=== PATIENT | female | born 1985 | race Caucasian/White ===

== ENCOUNTER 2017-06-01 15:47 | Inpatient (IN) | payer OTHER ==
[~2017-06-01] VITALS: Ht 170.2 cm; Wt 68.9 kg
[~2017-06-01 15:47] MED LIST: ADVAIR 250/501 DISK IH; ALBUTEROL IH; ALLERGY25 M2; AMBIEN10 M1 PO; AMBIEN10 MG PO; AVENTYL,PAMELOR10 M1 PO; AVENTYL,PAMELOR25 MG PO; Advair HFA 115/21 IH; BACLOFEN PUMP; BACLOFEN10 MG PO; BACLOFEN20 MG PO; BENADRYL25 MG PO; BENADRYL50 MG PO; CIPRO750 MG PO; CITALOPRAM HBR10 MG PO; COMBIVENT200 INHALA IH; Cleocin PO; Combivent IH; DELTASONE50 MG PO; DILANTIN; DILAUDID2 MG PO; DILAUDID4 MG PO; DOXYCYCLINE HY100 MG PO; FLEXERIL; FLEXERIL10 MG PO; FLEXERIL5 MG PO; LIORESAL I2000 MCG/1 IT; NORTRIPTYLINE; NORTRIPTYLINE H10 MG PO; NORTRIPTYLINE H50 MG PO; OXYCODONE15 MG PO; OXYCONTIN10 MG PO; OXYCONTIN20 MG PO; OxyCODONE PO; PAMELOR50 MG PO; PREDNISONE10 MG PO; PROVENTIL,2.5 MG/0.5 IH; TIZANIDINE HCL4 MG PO; TOPAMAX100 MG PO; TORADOL10 MG PO; ULTRAM50 MG PO; XANAX XR3 MG PO; XANAX0.5 MG PO; XANAX1 MG PO; XANAX2 MG PO; Xanax PO; ZALEPLON10 MG PO; ZEASORB-AF70 G1 TP; ZITHROMAX500 MG PO; Zithromax PO; predniSONE PO
[2017-06-01 17:00] LABS: BASE EXCESS -5.7 mEq/L (-3 to +3); BICARBONATE 18.5 mEq/L (22-26); CARBOXY HGB 4.3 % (0-5); METHEMOGLOBIN 1.1 % (0-1.5); PO2 154 mm Hg (80-100); pH 7.37 (7.35-7.45)
[2017-06-01 17:02] LABS: COMMENTS - BLOOD GASES C+A-N/A; DEVICE 980 VENTILATOR; FI02 50 %; MECHANICAL RATE 16 resp/min; MODE AC; PCO2 32 mm Hg (35-45); PEEP 5 CM/H20; SITE LR; TIDAL VOLUME 450 ML; TOTAL RESP RATE 16 resp/min
[2017-06-01] MEDS ORDERED: ADVAIR 250/501 DISK IH (17:32)
[2017-06-01] MEDS ORDERED: OXYMORPHONE HCL30 MG PO (17:33)
[2017-06-01 17:43] LABS: ADD MIUA? YES; BILIRUBIN NEGATIVE; BLOOD SMALL; COLOR YELLOW ((YELLOW)); GLUCOSE (STRIP) NEGATIVE; KETONES 20; LEUKOCYTES NEGATIVE; NITRITE NEGATIVE; PROTEIN (STRIP) NEGATIVE; SPECIFIC GRAVITY 1.015 (1.000-1.030); UROBILINOGEN 0.2 MG/DL (0.2-1.0)
[2017-06-01 17:49] LABS: BACTERIA NONE SEEN /HPF; EPITHELIAL CELLS RARE /HPF; GRANULAR CASTS 0-5 /LPF; MUCUS TRACE /LPF; RED BLOOD CELLS 0-5 /HPF (0-5); UCUL ADDED? NO; WHITE BLOOD CELLS 0-5 /HPF (0-5)
[2017-06-01 19:02] LABS: EOSINOPHIL (%) 0.1 % (0-5); IMMATURE GRANULOCYTE (%) 0.5 % (0.0-0.7); IMMATURE GRANULOCYTE COUNT 0.1 K/uL; INSTRUMENT ABS NEUTROPHIL CT 8.1 K/uL; LYMPHOCYTE COUNT 1.6 K/uL (1.0-2.8); MCH 28.5 PG (29.0-34.0); MCHC 33.4 G/DL (30.0-36.0); MCV 85.4 FL (83-99); MONOCYTE (%) 4.7 % (3-12); MONOCYTE COUNT 0.5 K/uL (0-0.8); NEUTROPHIL (%) 78.3 % (45-76); NEUTROPHIL COUNT 8.1 K/uL (1.8-6.4); RBC DIS.WIDTH-CV 13.1 % (11.8-14.6); RBC DIS.WIDTH-SD 40.9 % (39-53); WHITE BLOOD COUNT 10.3 K/uL (4.1-10.2)
[2017-06-01 19:08] LABS: INTER. NORMALIZED RATIO 1.1; PROTHROMBIN TIME 11.6 SEC (10.2-12.9)
[2017-06-01 19:10] LABS: CHLORIDE 111 mEq/L (99-109); POTASSIUM 3.7 mEq/L (3.7-5.4); SODIUM 136 mEq/L (136-147)
[2017-06-01 19:11] LABS: PTT 24.3 SEC (25-37)
[2017-06-01 19:12] LABS: GLUCOSE 92 mg/dL (70-99)
[2017-06-01 19:14] LABS: ANION GAP 9 MEQ/L (2-14); TOTAL BILIRUBIN 0.6 mg/dL (0.0-1.0)
[2017-06-01 19:16] LABS: ALKALINE PHOSPHATASE 50 IU/L (3-129); GFR ESTIMATE (CALCULATED) > 59 mL/min/
[2017-06-01 19:17] LABS: UREA NITROGEN (BUN) 9 mg/dL (9-23)
[2017-06-01 19:54] LABS: PLAT.SUFFICIENCY ADEQUATE; PLATELET CLUMPS PRESENT - PLATELET COUNT APPEARS ADQ.; PLATELET COUNT UNABLE TO REPORT K/uL (156-360)
[2017-06-01 22:28] VITALS: BP 132/93
[2017-06-01 22:31] VITALS: BP 132/93
[2017-06-01 23:00] VITALS: BP 113/78
[2017-06-02] VITALS (9 sets, daily range): BP systolic 93–116; BP diastolic 62–86
[2017-06-02 00:03] LABS: METH RESISTANT S AUREUS PCR NEGATIVE (NEGATIVE)
[2017-06-02 00:08] LABS: PROBE CHECK PASS; SPECIMEN PROCESSING CONTROL PASS
[2017-06-02 06:05] LABS: INTER. NORMALIZED RATIO 1.2; PROTHROMBIN TIME 13.2 SEC (10.2-12.9)
[2017-06-02 06:26] LABS: ALKALINE PHOSPHATASE 48 IU/L (3-129); ANION GAP 9 MEQ/L (2-14); CHLORIDE 113 MEQ/L (99-109); GFR ESTIMATE (CALCULATED) > 59 mL/min/; GLUCOSE 93 mg/dL (70-99); SAMPLE HEMOLYSIS CHECK 0; SAMPLE ICTERIC CHECK 0; SAMPLE LIPEMIA CHECK 0; SODIUM 138 MEQ/L (136-147); TOTAL BILIRUBIN 0.7 MG/DL (0.0-1.0); UREA NITROGEN (BUN) 6 mg/dL (9-23)
[2017-06-03] VITALS (12 sets, daily range): BP systolic 117–149; BP diastolic 77–110
[2017-06-03 14:38] LABS: BASOPHIL COUNT 0.1 K/uL (0-0.1); EOSINOPHIL (%) 0 % (0-5); HEMATOCRIT 40.8 % (36.0-46.0); IMMATURE GRANULOCYTE (%) 0.5 % (0.0-0.7); INSTRUMENT ABS NEUTROPHIL CT 5.7 K/uL; LYMPHOCYTE COUNT 2.2 K/uL (1.0-2.8); MCH 29.4 PG (29.0-34.0); MCHC 34.3 G/DL (30.0-36.0); MCV 85.5 FL (83-99); MONOCYTE (%) 5.6 % (3-12); MONOCYTE COUNT 0.5 K/uL (0-0.8); NEUTROPHIL (%) 67.3 % (45-76); NEUTROPHIL COUNT 5.7 K/uL (1.8-6.4); PLATELET COUNT 259 K/uL (156-360); RBC DIS.WIDTH-CV 13.3 % (11.8-14.6); RBC DIS.WIDTH-SD 42.1 % (39-53); RED BLOOD COUNT 4.77 M/uL (3.80-5.20); WHITE BLOOD COUNT 8.5 K/uL (4.1-10.2)
[2017-06-03 14:55] LABS: ANION GAP 7 MEQ/L (2-14); CHLORIDE 110 MEQ/L (99-109); GFR ESTIMATE (CALCULATED) > 59 mL/min/; GLUCOSE 80 mg/dL (70-99); POTASSIUM 3.4 MEQ/L (3.7-5.4); SAMPLE HEMOLYSIS CHECK 0; SAMPLE ICTERIC CHECK 0; SAMPLE LIPEMIA CHECK 0; SODIUM 141 MEQ/L (136-147); UREA NITROGEN (BUN) 7 mg/dL (9-23)
[2017-06-04] VITALS: BP 97/60
[2017-06-04 04:00] VITALS: BP 112/74
[2017-06-04 05:22] LABS: BASOPHIL COUNT 0.1 K/uL (0-0.1); EOSINOPHIL (%) 0 % (0-5); HEMATOCRIT 37.7 % (36.0-46.0); IMMATURE GRANULOCYTE (%) 0.3 % (0.0-0.7); INSTRUMENT ABS NEUTROPHIL CT 3.3 K/uL; LYMPHOCYTE COUNT 2.5 K/uL (1.0-2.8); MCH 29.2 PG (29.0-34.0); MCV 85.9 FL (83-99); MEAN PLAT.VOLUME 10.1 uM^3 (9.5-12.4); MONOCYTE (%) 7.1 % (3-12); MONOCYTE COUNT 0.5 K/uL (0-0.8); NEUTROPHIL (%) 52.3 % (45-76); NEUTROPHIL COUNT 3.3 K/uL (1.8-6.4); PLATELET COUNT 245 K/uL (156-360); RBC DIS.WIDTH-CV 13.4 % (11.8-14.6); RBC DIS.WIDTH-SD 42.1 % (39-53); RED BLOOD COUNT 4.39 M/uL (3.80-5.20); WHITE BLOOD COUNT 6.3 K/uL (4.1-10.2)
[2017-06-04 05:39] LABS: ANION GAP 11 MEQ/L (2-14); CHLORIDE 111 MEQ/L (99-109); GFR ESTIMATE (CALCULATED) > 59 mL/min/; GLUCOSE 88 mg/dL (70-99); POTASSIUM 3.5 MEQ/L (3.7-5.4); SAMPLE HEMOLYSIS CHECK 0; SAMPLE ICTERIC CHECK 0; SAMPLE LIPEMIA CHECK 0; SODIUM 142 MEQ/L (136-147); UREA NITROGEN (BUN) 7 mg/dL (9-23)
[2017-06-04] MEDS ORDERED: LEVETIRACETAM500 MG PO (07:50)
[2017-06-04 08:00] VITALS: BP 131/87
== END 2017-06-04 09:27 | disposition home or self-care (01) | DRG 208 ==
LOC: EME 15:47 → EDOF 19:40 → 4WEST 19:40 → ENRESERV 19:43 → 4WEST 22:21 → ENRESERV 06-03 16:51 → 4WEST 06-04 09:27
PROVIDERS: Emergency Medicine; Internal Medicine Nephrology; Specialist
PROC: 5A1935Z Respiratory Ventilation, Less than 24 Consecutive Hours (ICD-10-PCS; principal; 2017-06-01)
PROC: 0BH17EZ Insertion of Endotracheal Airway into Trachea, Via Natural or Artificial Opening (ICD-10-PCS; 2017-06-01)
DX: J96.00 Acute respiratory failure, unspecified whether with hypoxia or hypercapnia (principal); J69.0 Pneumonitis due to inhalation of food and vomit; I69.351 Hemiplegia and hemiparesis following cerebral infarction affecting right dominant side; J98.11 Atelectasis; D64.9 Anemia, unspecified; E03.9 Hypothyroidism, unspecified; F17.210 Nicotine dependence, cigarettes, uncomplicated; F39 Unspecified mood [affective] disorder; F12.90 Cannabis use, unspecified, uncomplicated; G35 Multiple sclerosis; G93.89 Other specified disorders of brain; G62.9 Polyneuropathy, unspecified; G40.909 Epilepsy, unspecified, not intractable, without status epilepticus; R32 Unspecified urinary incontinence; K58.9 Irritable bowel syndrome, unspecified; K21.9 Gastro-esophageal reflux disease without esophagitis; R00.0 Tachycardia, unspecified; G43.909 Migraine, unspecified, not intractable, without status migrainosus; Z91.040 Latex allergy status; Z87.442 Personal history of urinary calculi; Z99.3 Dependence on wheelchair; Z74.01 Bed confinement status
CPT/HCPCS: 36600; 70450; 71010; 71275; 80048; 80053; 81003; 82803; 83605; 83735; 84100; 85025; 85610; 85730; 87040; 87070; 87205; 87641; 93005; 94002; 94003; 94799; 95819; 99281; 99285; J1170; J1630; J1644; J1953; J2250; J2405; J2543; J2704; J3010; J3260; J3370; J7050; J7644; S0028

== ENCOUNTER 2017-07-24 14:56 | Emergency (ER) | payer OTHER ==
[~2017-07-24] VITALS: Ht 162.6 cm; Wt 67.2 kg
[~2017-07-24 14:56] MED LIST changes: +LEVETIRACETAM500 MG PO; +OXYMORPHONE HCL30 MG PO
[2017-07-24 17:10] LABS: BASOPHIL COUNT 0.1 K/uL (0-0.1); EOSINOPHIL (%) 0 % (0-5); IMMATURE GRANULOCYTE (%) 0.3 % (0.0-0.7); INSTRUMENT ABS NEUTROPHIL CT 5.4 K/uL; MCH 28.3 PG (29.0-34.0); MCHC 33.4 G/DL (30.0-36.0); MCV 84.6 FL (83-99); MEAN PLAT.VOLUME 10.1 uM^3 (9.5-12.4); MONOCYTE (%) 5.2 % (3-12); MONOCYTE COUNT 0.4 K/uL (0-0.8); NEUTROPHIL COUNT 5.4 K/uL (1.8-6.4); PLATELET COUNT 224 K/uL (156-360); RBC DIS.WIDTH-CV 13.8 % (11.8-14.6); RBC DIS.WIDTH-SD 43.1 % (39-53); RED BLOOD COUNT 4.49 M/uL (3.80-5.20); WHITE BLOOD COUNT 7.9 K/uL (4.1-10.2)
[2017-07-24 17:17] LABS: CHLORIDE 110 mEq/L (99-109); POTASSIUM 3.7 mEq/L (3.7-5.4); SODIUM 137 mEq/L (136-147)
[2017-07-24 17:20] LABS: GLUCOSE 88 mg/dL (70-99)
[2017-07-24 17:21] LABS: ANION GAP 7 MEQ/L (2-14)
[2017-07-24 17:22] LABS: TOTAL BILIRUBIN 0.3 mg/dL (0.0-1.0)
[2017-07-24 17:23] LABS: ALKALINE PHOSPHATASE 52 IU/L (3-129)
[2017-07-24 17:24] LABS: GFR ESTIMATE (CALCULATED) > 59 mL/min/
[2017-07-24 17:25] LABS: UREA NITROGEN (BUN) 7 mg/dL (9-23)
[2017-07-24 17:27] LABS: LIPASE 7 U/L (1.0-51.0)
[2017-07-24 18:46] LABS: INTERNAL CONTROL VALID? YES
[2017-07-24 18:56] LABS: ADD MIUA? YES; BILIRUBIN NEGATIVE; BLOOD SMALL; COLOR YELLOW ((YELLOW)); GLUCOSE (STRIP) NEGATIVE; KETONES NEGATIVE; LEUKOCYTES NEGATIVE; NITRITE NEGATIVE; PROTEIN (STRIP) 30; SPECIFIC GRAVITY 1.025 (1.000-1.030)
[2017-07-24 19:02] LABS: BACTERIA NONE SEEN /HPF; EPITHELIAL CELLS RARE /HPF; MUCUS TRACE /LPF; RED BLOOD CELLS 15-20 /HPF (0-5); UCUL ADDED? NO; WHITE BLOOD CELLS NONE SEEN /HPF (0-5)
[2017-07-24 19:38] VITALS: BP 108/69
== END 2017-07-24 19:39 | disposition home or self-care (01) ==
LOC: EME 14:56
PROVIDERS: Emergency Medicine
DX: R45.1 Restlessness and agitation (principal); F84.0 Autistic disorder; G35 Multiple sclerosis; Z86.73 Personal history of transient ischemic attack (TIA), and cerebral infarction without residual deficits; J45.909 Unspecified asthma, uncomplicated; Z86.718 Personal history of other venous thrombosis and embolism; F17.200 Nicotine dependence, unspecified, uncomplicated
CPT/HCPCS: 80053; 81003; 83690; 83735; 84703; 85025; 99281; 99284; J1200; J1630; J2060

== ENCOUNTER 2017-07-27 20:23 | Inpatient (IN) | payer OTHER ==
[~2017-07-27] VITALS: Ht 162.6 cm; Wt 72.1 kg
[2017-07-27 21:17] LABS: ADD MIUA? YES; BILIRUBIN NEGATIVE; BLOOD SMALL; COLOR STRAW ((YELLOW)); GLUCOSE (STRIP) NEGATIVE; KETONES NEGATIVE; LEUKOCYTES NEGATIVE; NITRITE NEGATIVE; PROTEIN (STRIP) NEGATIVE; SPECIFIC GRAVITY 1.003 (1.000-1.030); UROBILINOGEN 0.2 MG/DL (0.2-1.0)
[2017-07-27 21:17] LABS: EOSINOPHIL (%) 0 % (0-5); HEMATOCRIT 45.1 % (36.0-46.0); IMMATURE GRANULOCYTE (%) 0.3 % (0.0-0.7); INSTRUMENT ABS NEUTROPHIL CT 5.9 K/uL; LYMPHOCYTE COUNT 1.2 K/uL (1.0-2.8); MCH 27.9 PG (29.0-34.0); MCHC 33.3 G/DL (30.0-36.0); MCV 83.8 FL (83-99); MEAN PLAT.VOLUME 10.2 uM^3 (9.5-12.4); MONOCYTE (%) 2.3 % (3-12); MONOCYTE COUNT 0.2 K/uL (0-0.8); NEUTROPHIL (%) 80.4 % (45-76); NEUTROPHIL COUNT 5.9 K/uL (1.8-6.4); PLATELET COUNT 277 K/uL (156-360); RBC DIS.WIDTH-CV 14.3 % (11.8-14.6); RBC DIS.WIDTH-SD 43.4 % (39-53); RED BLOOD COUNT 5.38 M/uL (3.80-5.20); WHITE BLOOD COUNT 7.4 K/uL (4.1-10.2)
[2017-07-27 21:22] LABS: BACTERIA NONE SEEN /HPF; EPITHELIAL CELLS RARE /HPF; MUCUS TRACE /LPF; RED BLOOD CELLS 0-5 /HPF (0-5); UCUL ADDED? NO; WHITE BLOOD CELLS 0-5 /HPF (0-5)
[2017-07-27 21:23] LABS: CHLORIDE 111 mEq/L (99-109); SODIUM 139 mEq/L (136-147)
[2017-07-27 21:25] LABS: GLUCOSE 119 mg/dL (70-99)
[2017-07-27 21:27] LABS: ANION GAP 11 MEQ/L (2-14)
[2017-07-27 21:29] LABS: ALKALINE PHOSPHATASE 58 IU/L (3-129); GFR ESTIMATE (CALCULATED) > 59 mL/min/
[2017-07-27] MEDS ORDERED: XANAX1 MG PO (21:29)
[2017-07-27] MEDS ORDERED: PROAIR HFA8.5 GM IH (21:29)
[2017-07-27 21:30] LABS: TOTAL BILIRUBIN 0.4 mg/dL (0.0-1.0); UREA NITROGEN (BUN) 7 mg/dL (9-23)
[2017-07-27] MEDS ORDERED: DILAUDID4 MG PO (21:30)
[2017-07-27] MEDS ORDERED: AVENTYL,PAMELOR50 MG PO (21:30)
[2017-07-27] MEDS ORDERED: ADVAIR 250/501 DISK IH (21:31)
[2017-07-27] MEDS ORDERED: OXYMORPHONE HCL30 MG PO (21:31)
[2017-07-27] MEDS ORDERED: KEPPRA500 MG PO (21:33)
[2017-07-27 21:36] LABS: BASE EXCESS -3.5 mEq/L (-3 to +3); BICARBONATE 20.4 mEq/L (22-26); CARBOXY HGB 3.7 % (0-5); COMMENTS - BLOOD GASES C+; METHEMOGLOBIN 1.2 % (0-1.5); PCO2 33 mm Hg (35-45); PO2 291 mm Hg (80-100); SITE RR
[2017-07-27 21:37] LABS: DEVICE PB840; FI02 100 %; MECHANICAL RATE 18 resp/min; MODE AC; PEEP 5 CM/H20; TIDAL VOLUME 400 ML; TOTAL RESP RATE 20 resp/min
[2017-07-27 21:38] LABS: TROP-I INTERPRETATION NEGATIVE; TROPONIN-I < 0.01 ng/mL (0.0-0.30)
[2017-07-27 23:15] VITALS: BP 128/73
[2017-07-28] VITALS (12 sets, daily range): BP systolic 97–127; BP diastolic 55–88
[2017-07-28 02:06] LABS: METH RESISTANT S AUREUS PCR NEGATIVE (NEGATIVE)
[2017-07-28 02:11] LABS: PROBE CHECK PASS; SPECIMEN PROCESSING CONTROL PASS
[2017-07-29] VITALS (23 sets, daily range): BP systolic 108–144; BP diastolic 64–101
[2017-07-29 05:33] LABS: BASE EXCESS -5.7 mEq/L (-3 to +3); BICARBONATE 16.9 mEq/L (22-26); CARBOXY HGB 1.9 % (0-5); COMMENTS - BLOOD GASES C+A+; DEVICE VENTILATOR; FI02 30 %; MECHANICAL RATE 18 resp/min; METHEMOGLOBIN 1.7 % (0-1.5); MODE AC; PCO2 26 mm Hg (35-45); PEEP 5 CM/H20; PO2 60 mm Hg (80-100); SITE RR; TIDAL VOLUME 400 ML; TOTAL RESP RATE 20 resp/min; pH 7.42 (7.35-7.45)
[2017-07-29 05:44] LABS: EOSINOPHIL (%) 0 % (0-5); IMMATURE GRANULOCYTE (%) 0.5 % (0.0-0.7); LYMPHOCYTE COUNT 0.5 K/uL (1.0-2.8); MCH 27.8 PG (29.0-34.0); MCHC 33.4 G/DL (30.0-36.0); MCV 83.3 FL (83-99); MEAN PLAT.VOLUME 10.1 uM^3 (9.5-12.4); MONOCYTE (%) 0.5 % (3-12); NEUTROPHIL (%) 90.8 % (45-76); PLATELET COUNT 237 K/uL (156-360); RBC DIS.WIDTH-CV 14.1 % (11.8-14.6); RBC DIS.WIDTH-SD 42.9 % (39-53); RED BLOOD COUNT 5.28 M/uL (3.80-5.20); WHITE BLOOD COUNT 6.6 K/uL (4.1-10.2)
[2017-07-29 06:33] LABS: ANION GAP 12 MEQ/L (2-14); CHLORIDE 111 MEQ/L (99-109); GFR ESTIMATE (CALCULATED) > 59 mL/min/; GLUCOSE 115 mg/dL (70-99); POTASSIUM 3.5 MEQ/L (3.7-5.4); SAMPLE HEMOLYSIS CHECK 0; SAMPLE ICTERIC CHECK 0; SAMPLE LIPEMIA CHECK 0; SODIUM 139 MEQ/L (136-147); UREA NITROGEN (BUN) 6 mg/dL (9-23)
[2017-07-30] VITALS (12 sets, daily range): BP systolic 108–150; BP diastolic 65–97
[2017-07-30 05:43] LABS: EOSINOPHIL (%) 0 % (0-5); HEMATOCRIT 41.5 % (36.0-46.0); IMMATURE GRANULOCYTE (%) 0.8 % (0.0-0.7); IMMATURE GRANULOCYTE COUNT 0.1 K/uL; INSTRUMENT ABS NEUTROPHIL CT 13.7 K/uL; LYMPHOCYTE COUNT 0.7 K/uL (1.0-2.8); MCH 27.7 PG (29.0-34.0); MCHC 32.5 G/DL (30.0-36.0); MEAN PLAT.VOLUME 10.7 uM^3 (9.5-12.4); MONOCYTE (%) 1.2 % (3-12); MONOCYTE COUNT 0.2 K/uL (0-0.8); NEUTROPHIL (%) 93.1 % (45-76); NEUTROPHIL COUNT 13.7 K/uL (1.8-6.4); PLATELET COUNT 247 K/uL (156-360); RBC DIS.WIDTH-CV 14.4 % (11.8-14.6); RBC DIS.WIDTH-SD 44.9 % (39-53); RED BLOOD COUNT 4.88 M/uL (3.80-5.20); WHITE BLOOD COUNT 14.7 K/uL (4.1-10.2)
[2017-07-30 06:08] LABS: ANION GAP 12 MEQ/L (2-14); CHLORIDE 109 MEQ/L (99-109); GFR ESTIMATE (CALCULATED) > 59 mL/min/; GLUCOSE 133 mg/dL (70-99); POTASSIUM 4.1 MEQ/L (3.7-5.4); SAMPLE HEMOLYSIS CHECK 0; SAMPLE ICTERIC CHECK 0; SAMPLE LIPEMIA CHECK 0; SODIUM 140 MEQ/L (136-147); UREA NITROGEN (BUN) 8 mg/dL (9-23)
[2017-07-30 10:50] LABS: ADD MIUA? YES; BILIRUBIN NEGATIVE; BLOOD SMALL; COLOR YELLOW ((YELLOW)); GLUCOSE (STRIP) NEGATIVE; KETONES NEGATIVE; LEUKOCYTES SMALL; NITRITE NEGATIVE; PROTEIN (STRIP) NEGATIVE; SPECIFIC GRAVITY 1.013 (1.000-1.030); UROBILINOGEN 0.2 MG/DL (0.2-1.0)
[2017-07-30 11:10] LABS: BACTERIA NONE SEEN /HPF; EPITHELIAL CELLS RARE /HPF; MUCUS TRACE /LPF; RED BLOOD CELLS 0-5 /HPF (0-5); UCUL ADDED? NO; WHITE BLOOD CELLS 0-5 /HPF (0-5)
[2017-07-30] MEDS ORDERED: PREDNISONE5 MG PO (13:42)
== END 2017-07-30 15:08 | disposition home or self-care (01) | DRG 208 ==
LOC: EME → EDBD 20:23 → EME 20:23 → EDOF 21:51 → 4WEST 21:51 → ENRESERV 21:52 → 4WEST 23:03
PROVIDERS: Emergency Medicine; Internal Medicine Critical Care Medicine; Nurse Practitioner Adult Health; Specialist
PROC: 0BH17EZ Insertion of Endotracheal Airway into Trachea, Via Natural or Artificial Opening (ICD-10-PCS; principal; 2017-07-27)
PROC: 5A09357 Assistance with Respiratory Ventilation, Less than 24 Consecutive Hours, Continuous Positive Airway Pressure (ICD-10-PCS; principal; 2017-07-27)
PROC: 5A1945Z Respiratory Ventilation, 24-96 Consecutive Hours (ICD-10-PCS; principal; 2017-07-27)
DX: J96.01 Acute respiratory failure with hypoxia (principal); I69.351 Hemiplegia and hemiparesis following cerebral infarction affecting right dominant side; G40.909 Epilepsy, unspecified, not intractable, without status epilepticus; G35 Multiple sclerosis; J45.909 Unspecified asthma, uncomplicated; J98.11 Atelectasis; K21.9 Gastro-esophageal reflux disease without esophagitis; K58.9 Irritable bowel syndrome, unspecified; E03.9 Hypothyroidism, unspecified; F17.200 Nicotine dependence, unspecified, uncomplicated; F41.9 Anxiety disorder, unspecified; F32.9 Major depressive disorder, single episode, unspecified; G89.29 Other chronic pain; D64.9 Anemia, unspecified; R32 Unspecified urinary incontinence; Z87.442 Personal history of urinary calculi
CPT/HCPCS: 36600; 71010; 71275; 80048; 80053; 81003; 82803; 83605; 83735; 84100; 84484; 85025; 87040; 87070; 87205; 87641; 93005; 94002; 94003; 94640 76; 94799; 99281; 99285; J1650; J2060; J2250; J2704; J2930; J3010; J7030; J7050

== ENCOUNTER 2017-10-28 14:36 | Inpatient (IN) | payer OTHER ==
[2017-10-28] VITALS (7 sets, daily range): BP systolic 101–130; BP diastolic 61–82
[~2017-10-28] VITALS: Ht 167.6 cm; Wt 67.9 kg
[~2017-10-28 14:36] MED LIST changes: +AVENTYL,PAMELOR50 MG PO; +KEPPRA500 MG PO; +PREDNISONE5 MG PO; +PROAIR HFA8.5 GM IH
[2017-10-28 15:01] LABS: BASOPHIL (%) 0.5 % (0-1); EOSINOPHIL (%) 0.1 % (0-5); HEMATOCRIT 43.4 % (36.0-46.0); HEMOGLOBIN 14.8 G/DL (11.9-15.5); IMMATURE GRANULOCYTE (%) 0.3 % (0.0-0.7); LYMPHOCYTE (%) 39.8 % (15-42); LYMPHOCYTE COUNT 3.5 K/uL (1.0-2.8); MCH 29.1 PG (29.0-34.0); MCHC 34.1 G/DL (30.0-36.0); MCV 85.3 FL (83-99); MONOCYTE (%) 4.8 % (3-12); MONOCYTE COUNT 0.4 K/uL (0-0.8); NEUTROPHIL (%) 54.5 % (45-76); NEUTROPHIL COUNT 4.7 K/uL (1.8-6.4); PLATELET COUNT 249 K/uL (156-360); RBC DIS.WIDTH-CV 13.2 % (11.8-14.6); RBC DIS.WIDTH-SD 41.4 % (39-53); RED BLOOD COUNT 5.09 M/uL (3.80-5.20); WHITE BLOOD COUNT 8.7 K/uL (4.1-10.2)
[2017-10-28 15:05] LABS: INTER. NORMALIZED RATIO 1.1
[2017-10-28 15:08] LABS: PTT 24.4 SEC (25-37)
[2017-10-28 15:16] LABS: ALBUMIN 4.2 g/dL (3.2-4.8)
[2017-10-28 15:17] LABS: CHLORIDE 107 mEq/L (99-109); POTASSIUM 2.9 mEq/L (3.7-5.4); SODIUM 139 mEq/L (136-147)
[2017-10-28 15:19] LABS: GLUCOSE 157 mg/dL (70-99); TOTAL PROTEIN 7.7 g/dL (6.4-8.3)
[2017-10-28 15:21] LABS: TOTAL BILIRUBIN 0.4 mg/dL (0.0-1.0)
[2017-10-28 15:22] LABS: ALKALINE PHOSPHATASE 53 IU/L (3-129); TROP-I INTERPRETATION NEGATIVE; TROPONIN-I < 0.01 ng/mL (0.0-0.30)
[2017-10-28 15:23] LABS: CREATININE 0.7 mg/dL (0.6-1.3); GFR ESTIMATE (CALCULATED) > 59 mL/min/
[2017-10-28 15:24] LABS: AST (GOT) 11 IU/L (2-34); UREA NITROGEN (BUN) 7 mg/dL (9-23)
[2017-10-28 15:26] LABS: ALT (GPT) 7 IU/L (3-49)
[2017-10-28 15:53] LABS: BASE EXCESS -0.5 mEq/L (-3 to +3); BICARBONATE 24.2 mEq/L (22-26); COMMENTS - BLOOD GASES A+C+; DEVICE VENTILATOR; FI02 70 %; METHEMOGLOBIN 1.4 % (0-1.5); PCO2 39 mm Hg (35-45); PO2 162 mm Hg (80-100); SITE LR
[2017-10-28 15:54] LABS: MECHANICAL RATE 16 resp/min; MODE AC-16; PEEP 5 CM/H20; TIDAL VOLUME 400 ML; TOTAL RESP RATE 16 resp/min
[2017-10-28 23:50] LABS: CHLORIDE 110 mEq/L (99-109); SODIUM 139 mEq/L (136-147)
[2017-10-28 23:52] LABS: GLUCOSE 135 mg/dL (70-99)
[2017-10-28 23:56] LABS: CREATININE 0.5 mg/dL (0.6-1.3); GFR ESTIMATE (CALCULATED) > 59 mL/min/
[2017-10-28 23:57] LABS: UREA NITROGEN (BUN) 5 mg/dL (9-23)
[2017-10-28 23:58] LABS: POTASSIUM 3.6 mEq/L (3.7-5.4)
[2017-10-29] VITALS (13 sets, daily range): BP systolic 100–143; BP diastolic 68–98
[2017-10-29] MEDS ORDERED: FLEXERIL5 MG PO (08:58)
== END 2017-10-29 11:40 | disposition left against medical advice (07) | DRG 208 ==
LOC: EME 14:36 → EDOF 16:02 → 4WEST 16:02 → ENRESERV 16:09 → 4WEST 17:11
PROVIDERS: Emergency Medicine; Internal Medicine Critical Care Medicine
DX: J96.00 Acute respiratory failure, unspecified whether with hypoxia or hypercapnia (principal); G81.91 Hemiplegia, unspecified affecting right dominant side; J45.909 Unspecified asthma, uncomplicated; G35 Multiple sclerosis; G89.29 Other chronic pain; K21.9 Gastro-esophageal reflux disease without esophagitis; R56.9 Unspecified convulsions; F41.9 Anxiety disorder, unspecified; F32.9 Major depressive disorder, single episode, unspecified; D64.9 Anemia, unspecified; E87.6 Hypokalemia; R79.1 Abnormal coagulation profile; Z86.718 Personal history of other venous thrombosis and embolism; Z86.73 Personal history of transient ischemic attack (TIA), and cerebral infarction without residual deficits; Z87.442 Personal history of urinary calculi; Z95.0 Presence of cardiac pacemaker; Z91.040 Latex allergy status
CPT/HCPCS: 36600; 71045; 80048 91; 80053; 82803; 83880; 84484; 85025; 85379; 85610; 85730; 87070; 87205; 87641; 93005; 94002; 94003; 94799; 99202; C1753; J0171; J0330; J1100; J1630; J1650; J2250; J2704; J3010; J3480; J7644

== ENCOUNTER 2018-01-07 15:49 | Emergency (ER) | payer OTHER ==
[~2018-01-07] VITALS: Ht 162.6 cm; Wt 75.0 kg
[2018-01-07 18:34] VITALS: BP 143/103
== END 2018-01-07 19:02 | disposition home or self-care (01) ==
LOC: EME 15:49
DX: M24.412 Recurrent dislocation, left shoulder (principal); K21.9 Gastro-esophageal reflux disease without esophagitis; J45.909 Unspecified asthma, uncomplicated; G35 Multiple sclerosis; G37.3 Acute transverse myelitis in demyelinating disease of central nervous system; E03.9 Hypothyroidism, unspecified; F41.9 Anxiety disorder, unspecified; F32.9 Major depressive disorder, single episode, unspecified; F17.200 Nicotine dependence, unspecified, uncomplicated; Z86.73 Personal history of transient ischemic attack (TIA), and cerebral infarction without residual deficits; Z87.442 Personal history of urinary calculi; Z86.718 Personal history of other venous thrombosis and embolism; Z90.49 Acquired absence of other specified parts of digestive tract; Z88.1 Allergy status to other antibiotic agents; Z88.5 Allergy status to narcotic agent; Z88.8 Allergy status to other drugs, medicaments and biological substances; Z91.040 Latex allergy status
CPT/HCPCS: 71045; 73030; 99281; 99284

== ENCOUNTER 2018-05-31 16:28 | Inpatient (IN) | payer OTHER ==
[2018-05-31] VITALS (11 sets, daily range): BP systolic 85–119; BP diastolic 49–69
[~2018-05-31] VITALS: Ht 167.6 cm; Wt 71.9 kg
[2018-05-31 17:24] LABS: BASOPHIL (%) 0.8 % (0-1); BASOPHIL COUNT 0.1 K/uL (0-0.1); EOSINOPHIL (%) 0.2 % (0-5); HEMATOCRIT 44.9 % (36.0-46.0); IMMATURE GRANULOCYTE (%) 0.4 % (0.0-0.7); LYMPHOCYTE (%) 29.3 % (15-42); LYMPHOCYTE COUNT 2.7 K/uL (1.0-2.8); MCH 28.2 PG (29.0-34.0); MCHC 33.4 G/DL (30.0-36.0); MCV 84.6 FL (83-99); MONOCYTE (%) 3.2 % (3-12); MONOCYTE COUNT 0.3 K/uL (0-0.8); NEUTROPHIL (%) 66.1 % (45-76); PLATELET COUNT 377 K/uL (156-360); RBC DIS.WIDTH-CV 13.7 % (11.8-14.6); RBC DIS.WIDTH-SD 42.5 % (39-53); RED BLOOD COUNT 5.31 M/uL (3.80-5.20); WHITE BLOOD COUNT 9.1 K/uL (4.1-10.2)
[2018-05-31 17:34] LABS: ALBUMIN 4.1 g/dL (3.2-4.8); CHLORIDE 107 mEq/L (99-109); SODIUM 139 mEq/L (136-147)
[2018-05-31 17:36] LABS: GLUCOSE 190 mg/dL (70-99)
[2018-05-31 17:37] LABS: COMMENTS - BLOOD GASES +C; DEVICE PB980; FI02 50 %; INSPIRATION TIME 0.8 seconds; MECHANICAL RATE 20 resp/min; MODE ACVC+; PEEP 6 CM/H20; SITE RR +A; TIDAL VOLUME 430 ML; TOTAL RESP RATE 20 resp/min
[2018-05-31 17:38] LABS: TOTAL BILIRUBIN 0.4 mg/dL (0.0-1.0)
[2018-05-31 17:38] LABS: BASE EXCESS -4.3 mEq/L (-3 to +3); CARBOXY HGB 1.4 % (0-5); METHEMOGLOBIN 0.3 % (0-1.5); PCO2 30 mm Hg (35-45); PO2 205 mm Hg (80-100); pH 7.41 (7.35-7.45)
[2018-05-31 17:40] LABS: ALKALINE PHOSPHATASE 74 IU/L (3-129); CREATININE 0.7 mg/dL (0.6-1.3); GFR ESTIMATE (CALCULATED) > 59 mL/min/
[2018-05-31 17:41] LABS: UREA NITROGEN (BUN) 6 mg/dL (9-23)
[2018-05-31 17:42] LABS: AST (GOT) 12 IU/L (2-34)
[2018-05-31 17:43] LABS: ALT (GPT) 14 IU/L (3-49)
[2018-05-31 18:03] LABS: AMPHETAMINE NEGATIVE (500 ng/mL); COCAINE NEGATIVE (150 ng/mL); METHAMPHETAMINE NEGATIVE (500 ng/mL); OPIATES (MORPHINE) PRESUMPTIVE POSITIVE (100 ng/mL); PHENCYCLIDINE NEGATIVE (25 ng/mL); THC CANNABINOIDS PRESUMPTIVE POSITIVE (50 ng/mL)
[2018-05-31 18:04] LABS: BARBITURATES NEGATIVE (200 ng/mL); BENZODIAZEPINES PRESUMPTIVE POSITIVE (150 ng/mL); BUPRENORPHINE NEGATIVE (10 ng/mL); METHADONE NEGATIVE (200 ng/mL); OXYCODONE PRESUMPTIVE POSITIVE (100 ng/mL); PROPOXYPHENE NEGATIVE (300 ng/mL); TRICYCLIC ANTIDEPRESSANTS PRESUMPTIVE POSITIVE (300 ng/mL)
[2018-05-31 18:31] LABS: BENZODIAZEPINES, URINE SCREEN POSITIVE (200 ng/mL)
[2018-05-31 19:09] LABS: MAGNESIUM 2.3 mg/dL (1.3-2.7)
[2018-05-31 19:27] LABS: TRIGLYCERIDES 85 MG/DL (Normal: <150)
[2018-06-01] VITALS (20 sets, daily range): BP systolic 98–131; BP diastolic 63–86
[2018-06-01 05:18] LABS: HEMATOCRIT 43.2 % (36.0-46.0); HEMOGLOBIN 14.2 G/DL (11.9-15.5); MCHC 32.9 G/DL (30.0-36.0); MCV 85.2 FL (83-99); PLATELET COUNT 280 K/uL (156-360); RBC DIS.WIDTH-SD 43.5 % (39-53); RED BLOOD COUNT 5.07 M/uL (3.80-5.20)
[2018-06-01 06:01] LABS: CHLORIDE 110 MEQ/L (99-109); CREATININE 0.4 MG/DL (0.6-1.3); GFR ESTIMATE (CALCULATED) > 59 mL/min/; GLUCOSE 134 mg/dL (70-99); MAGNESIUM 2.1 mg/dl (1.3-2.7); SODIUM 140 MEQ/L (136-147); UREA NITROGEN (BUN) 4 mg/dL (9-23)
[2018-06-01 06:02] LABS: POTASSIUM 4.3 MEQ/L (3.7-5.4)
[2018-06-02] VITALS (8 sets, daily range): BP systolic 93–139; BP diastolic 69–96
[2018-06-02 05:57] LABS: HEMATOCRIT 37.4 % (36.0-46.0); HEMOGLOBIN 12.3 G/DL (11.9-15.5); MCH 28.4 PG (29.0-34.0); MCHC 32.9 G/DL (30.0-36.0); MCV 86.4 FL (83-99); PLATELET COUNT 263 K/uL (156-360); RBC DIS.WIDTH-CV 14.6 % (11.8-14.6); RBC DIS.WIDTH-SD 46.4 % (39-53); RED BLOOD COUNT 4.33 M/uL (3.80-5.20)
[2018-06-02 06:21] LABS: CHLORIDE 112 MEQ/L (99-109); CREATININE 0.5 MG/DL (0.6-1.3); GFR ESTIMATE (CALCULATED) > 59 mL/min/; POTASSIUM 3.7 MEQ/L (3.7-5.4); SODIUM 143 MEQ/L (136-147); UREA NITROGEN (BUN) 4 mg/dL (9-23)
[2018-06-02 06:23] LABS: GLUCOSE 82 mg/dL (70-99)
[2018-06-02] MEDS ORDERED: DILAUDID4 MG PO (12:23)
[2018-06-02] MEDS ORDERED: OXYMORPHONE HCL30 MG PO (12:23)
[2018-06-02] MEDS ORDERED: PAMELOR50 MG PO (12:24)
[2018-06-02] MEDS ORDERED: XANAX0.5 MG PO (12:24)
[2018-06-02] MEDS ORDERED: FLEXERIL5 MG PO (12:25)
== END 2018-06-02 13:00 | disposition left against medical advice (07) | DRG 208 ==
LOC: EME 16:28 → EDOF 17:13 → ENRESERV 17:16 → 4WEST 18:23
PROVIDERS: Emergency Medicine; Internal Medicine Pulmonary Disease
PROC: 5A1935Z Respiratory Ventilation, Less than 24 Consecutive Hours (ICD-10-PCS; principal; 2018-05-31)
PROC: 5A09357 Assistance with Respiratory Ventilation, Less than 24 Consecutive Hours, Continuous Positive Airway Pressure (ICD-10-PCS; principal; 2018-05-31)
PROC: 0BH17EZ Insertion of Endotracheal Airway into Trachea, Via Natural or Artificial Opening (ICD-10-PCS; principal; 2018-05-31)
PROC: 02H633Z Insertion of Infusion Device into Right Atrium, Percutaneous Approach (ICD-10-PCS; principal; 2018-05-31)
DX: J96.01 Acute respiratory failure with hypoxia (principal); J45.901 Unspecified asthma with (acute) exacerbation; G35 Multiple sclerosis; Z99.3 Dependence on wheelchair; F12.90 Cannabis use, unspecified, uncomplicated; F41.9 Anxiety disorder, unspecified; G89.29 Other chronic pain; F17.210 Nicotine dependence, cigarettes, uncomplicated; I69.351 Hemiplegia and hemiparesis following cerebral infarction affecting right dominant side; E87.6 Hypokalemia; E66.9 Obesity, unspecified; Z68.25 Body mass index [BMI] 25.0-25.9, adult
CPT/HCPCS: 36600; 71045; 80048; 80053; 83605; 83735; 84478; 84999; 85025; 85027; 87040; 87070; 87205; 87641; 93005; 94002; 94640; 94799; C1751; J0696; J1650; J2060; J2250; J2704; J2920; J3010; J3480; J7030; S0028